=== PATIENT | male | born 1980 | race Caucasian/White ===

== ENCOUNTER 2017-07-06 07:34 | Emergency (ER) | payer OTHER ==
[~2017-07-06] VITALS: Ht 188 cm; Wt 93.0 kg
[2017-07-06 07:50] VITALS: BP 146/95
[2017-07-06] MEDS ORDERED: UNICOMPLEX M TA1 TA1 PO (07:56)
== END 2017-07-06 08:54 | disposition home or self-care (01) ==
LOC: M.ERS 07:34
DX: F15.10 Other stimulant abuse, uncomplicated (principal); Y92.89 Other specified places as the place of occurrence of the external cause